=== PATIENT | female | born 1930 | race Caucasian/White ===

== ENCOUNTER 2016-09-29 05:20 | Emergency (ER) | payer OTHER ==
--- NOTE | 2016-09-29 05:32 | ED SKIN/ALLERGY COMPLAINT ---
History of Present Illness General Chief Complaint: Allergy Symptoms Stated Complaint: ? ALLERGIC REACTION,LIPS SWOLLEN PER PT,- DIF REEMA Source: patient Exam Limitations: no limitations Vital Signs & Intake/Output Vital Signs & Intake/Output Vital Signs Date Time Temp Pulse Resp B/P B/P Pulse O2 O2 Flow FiO2 Mean Ox Delivery Rate 09/29 0539 98.5 92 22 150/80 98 Room Air Allergies Coded Allergies: omeprazole (From PRILOSEC) (HIVES 09/29/16) Reconcile Medications Benzonatate 100 MG CAPSULE 1 CAP PO TID COUGH (Reported) Doxycycline Monohydrate 100 MG CAPSULE 1 CAP PO BID ANTIBIOTIC (Reported) Lisinopril 10 MG TABLET 1 TAB PO DAILY HTN (Reported) Triage Nurses Notes Reviewed? yes HPI: Patient presents for evaluation of lower lip swelling that began abruptly at about 2:00 this morning. Patient is concerned she is having an allergic reaction to some new medications she was prescribed for an upper respiratory illness (benzonatate and doxycycline). She denies any associated wheezing or extremity swelling. She denies any diffuse rashes but did notice a rash in the area of the right lateral chest that has now resolved. She did have a little numbness of the lips along with the swelling. She also experienced some pain in the right arm that has now resolved as well. (JAYLIN MANZANARES,BHUPINDER Bernabe) Past History Medical History Any Pertinent Medical History? see below for history Cardiovascular: hypertension Surgical History Surgical History: non-contributory Family History Hx Contributory? No (BHUPINDER KOWALSKI MD) Review of Systems Review of Systems Constitutional: Reports: no symptoms. EENTM: Reports: see HPI. Respiratory: Reports: no symptoms. Cardiovascular: Reports: no symptoms. GI: Reports: no symptoms. Genitourinary: Reports: no symptoms. Musculoskeletal: Reports: no symptoms. Skin: Reports: no symptoms. Neurological/Psychological: Reports: no symptoms. Hematologic/Endocrine: Reports: no symptoms. Immunologic/Allergic: Reports: no symptoms. All Other Systems: Reviewed and Negative (BHUPINDER KOWALSKI MD) Physical Exam Physical Exam General Appearance: see below Comments: Gen.: Well-nourished, well-developed, no acute respiratory distress. Head: Normocephalic, atraumatic. Eyes: Normal inspection bilaterally Ears: Normal inspection bilaterally Nose: Normal inspection Throat/mouth : Moist mucosa, mild swelling of the lower lip, no swelling of the tongue Neck: Supple, full range of motion, no goiter, no stridor Heart: Regular rate and rhythm, no murmurs rubs or gallops Lungs: Clear to auscultation bilaterally with normal air entry Chest: Nontender Back: Normal range of motion Abdomen: Soft, nontender, nondistended, normal bowel sounds Extremities: Normal range of motion grossly, equal radial pulses, no cyanosis clubbing or edema Neurologic: Cranial nerves grossly intact, speech is clear Skin: warm and dry Psychiatric: Calm, cooperative, no apparent delusions or hallucinations (JAYLIN MANZANARES,BHUPINDER Bernabe) Progress Differential Diagnosis: drug reaction Plan of Care: Orders Procedure Date/time Status Regular Diet 09/29 B Active Discontinue lisinopril (JAYLIN MANZANARES,BHUPINDER Bernabe) 7 AM PATIETN SIGNED OUT TO ME BY DR KOWALSKI, PENDING REEVALATUION. 09/29/2016 7:48:31 AM Patient's swelling has resolved. Bhupinder Kowalski MD felt on presentation that lip swelling was characteristic of FALLON inhibitor use. Patient will discontinue lisinopril she is going to call her primary care doctor today for hypertension medications of substitution. No chest pain or shortness of breath. She was able to eat breakfast without difficulty. Examination at this time is within normal limits. (FILOMENA OCAMPO MD) Comments: I've advised Cheyanne that she is experiencing lisinopril associated angioedema. Have also notified her that there is no proven treatment for this condition and that we will monitor her here in the emergency department for resolution. 09/29/2016 7:21:42 AM patient signed out to Dr. Ocampo at shift [employer]. (BHUPINDER KOWALSKI MD) Departure Departure Disposition: HOME OR SELF CARE Condition: Stable Clinical Impression Primary Impression: FALLON inhibitor-aggravated angioedema Qualifiers: Encounter type: initial encounter Qualified Codes: T78.3XXA - Angioneurotic edema, initial encounter; T46.4X5A - Adverse effect of angiotensin -converting-enzyme inhibitors, initial encounter Referrals: PATIENT HAS NO PRIMARY CARE DR (PCP/Family) Additional Instructions: Discontinue your lisinopril and contact her prescribing doctor regarding a replacement medication for your blood pressure. Departure Forms: Customer Survey General Discharge Information (JAYLIN MANZANARES,BHUPINDER Bernabe) Departure Time of Disposition: 748 (FILOMENA OCAMPO MD)
[2016-09-29] MEDS ORDERED: LISINOPRIL10 M1 PO (06:09)
[2016-09-29] MEDS ORDERED: BENZONATATE100 M1 PO (06:09)
[2016-09-29] MEDS ORDERED: DOXYCYCLINE MO100 M2 PO (06:09)
[2016-09-29 07:58] VITALS: BP 129/71
== END 2016-09-29 07:59 ==
LOC: ERH 05:20
DX: T46.4X5A Adverse effect of angiotensin-converting-enzyme inhibitors, initial encounter (principal)